=== PATIENT | female | born 1950 | race Caucasian/White ===

== ENCOUNTER 2017-05-17 07:12 | Inpatient (IN) | payer MEDICARE ==
[~2017-05-17] VITALS: Ht 154.9 cm; Wt 160.6 kg
[2017-05-17] MEDS ORDERED: APIX5TAB PO (09:05)
[2017-05-17] MEDS ORDERED: SIMV40TA PO (09:05)
[2017-05-17] MEDS ORDERED: ATEN50TA PO (09:05)
[2017-05-17] MEDS ORDERED: NORC5TAB PO (09:05)
[2017-05-17] MEDS ORDERED: LISI10TA3 PO (09:05)
[2017-05-17] MEDS ORDERED: LEVO200T4 PO (09:05)
[2017-05-17] MEDS ORDERED: GABA300C5 PO (09:05)
[2017-05-17] MEDS ORDERED: CLOTCRE TOPICAL (09:05)
[2017-05-17] MEDS ORDERED: FLUO20CA12 PO (09:05)
[2017-05-17] MEDS ORDERED: ceFAZolin 2 GM PREMIX 50 ML IV SCH (09:30)
[2017-05-17] MEDS ORDERED: SODIUM CHLORID 0.9% 500 ML IV PRN (09:30)
[2017-05-17] MEDS ORDERED: ONDANSETRON HCL 4 MG/2 ML VIAL IV PUSH SCH (09:30)
[2017-05-17] MEDS ORDERED: metroNIDAZOLE 500 MG INJ 100 ML IV SCH (09:30)
[2017-05-17] MEDS ORDERED: METOPROLOL TARTRATE 25 MG TAB PO PRN (09:30)
[2017-05-17] MEDS ORDERED: LACTATED RINGER'S 1000 ML IV PRN (09:30)
[2017-05-17] MEDS ORDERED: SCOPOLAMINE 1.5 MG PATCH T-DERMAL SCH (09:30)
[2017-05-17] MEDS ORDERED: CHLORHEXIDINE GLUCONATE 2 % 1 PACK (2 CLOTHS) TOPICAL PRN (09:30)
[2017-05-17] MEDS ORDERED: ACETAMINOPHEN 1000 MG/100 ML 100 ML IV SCH (09:30)
[2017-05-17] MEDS ORDERED: APREPITANT 40 MG CAP PO SCH (09:30)
[2017-05-17] MEDS ORDERED: INSULIN HUMAN REGULAR 1,000 UNITS/10 ML VIAL SQ PRN (09:30)
[2017-05-17] MEDS ORDERED: POVIDONE IODINE 5% (ANTISEPSIS KIT) 4 APPLICATIONS EACH NARE PRN (09:30)
[2017-05-17] MEDS ORDERED: BUPIVACAINE/EPINEPHRINE 0.5% 50 ML VIAL ONE ×2 (10:33→10:34)
[2017-05-17] MEDS ORDERED: ONDANSETRON HCL 4 MG/2 ML VIAL IV PUSH ONE (12:00)
[2017-05-17] MEDS ORDERED: PHENYLEPH/NS 1000 MCG/10 ML SYR IV ONE (12:00)
[2017-05-17] MEDS ORDERED: GLYCOPYRROLATE 1 MG/5 ML SYRINGE IV PUSH ONE (12:00)
[2017-05-17] MEDS ORDERED: PROPOFOL 200 MG/20 ML AMP IV ONE (12:00)
[2017-05-17] MEDS ORDERED: NEOSTIGMINE 3 MG/3 ML SYR IV ONE (12:00)
[2017-05-17] MEDS ORDERED: STERILE WATER FOR INJECTION 20 ML VIAL IV ONE (12:00)
[2017-05-17] MEDS ORDERED: MIDAZOLAM HCL 2 MG/2 ML VIAL IV ONE (12:00)
[2017-05-17] MEDS ORDERED: LACTATED RINGER'S 1000 ML INJ 1,000 ML IV ONE (12:00)
[2017-05-17] MEDS ORDERED: LIDOCAINE HCL 1% PF 5 ML AMPULE OTHER ONE (12:00)
[2017-05-17] MEDS ORDERED: METHYLENE BLUE 10 MG/ML VIAL IV ONE (12:00)
[2017-05-17] MEDS ORDERED: ePHEDrine/NS 25 MG/5 ML SYR IV ONE (12:00)
[2017-05-17] MEDS ORDERED: VECURONIUM BROMIDE 20 MG VIAL IV ONE (12:00)
[2017-05-17] MEDS ORDERED: ROCURONIUM INJ 50 MG/5 ML SYRINGE IV PUSH ONE (12:00)
[2017-05-17] MEDS ORDERED: SUGAMMADEX SODIUM 200 MG/2 ML VIAL IV PUSH ONE ×2 (14:09)
[2017-05-17] MEDS: METOCLOPRAMIDE HCL 10 MG/2 ML VIAL IV PUSH SCH ×2 (15:30→21:22)
[2017-05-17] MEDS ORDERED: ACETAMINOPHEN 325MG/HYDROcodone 7.5MG/15ML UDC PO PRN (15:30)
[2017-05-17] MEDS ORDERED: diphenhydrAMINE HCL ELIXIR 12.5 MG/5 ML CUP PO PRN (15:30)
[2017-05-17] MEDS ORDERED: Post-op Orders (for Pharmacy) MISC OTHER ONE (15:30)
[2017-05-17] MEDS ORDERED: ENALAPRILAT 1.25 MG/ML VIAL IV PUSH PRN (15:30)
[2017-05-17] MEDS ORDERED: diphenhydrAMINE HCL 50 MG/ML VIAL IV PUSH PRN (15:30)
[2017-05-17] MEDS: D5-1/2 NS + KCL 20 MEQ INJ 1,000 ML IV SCH ×2 (15:30)
[2017-05-17] MEDS ORDERED: SODIUM CHLORIDE 0.9% FLUSH 10 ML FLUSH IV FLUSH PRN (15:30)
[2017-05-17] MEDS ORDERED: HYDROmorphone HCL PF 1 MG/ML VIAL IV PUSH PRN (15:30)
[2017-05-17] MEDS ORDERED: *ONDANSETRON 4 MG VIAL PERIprocedural Use ONLY ONE (15:56)
[2017-05-17] MEDS ORDERED: *RESP: ALBUTEROL 2.5 MG/3 ML NEB (PRN) PERIprocedural Use ONLY NEB ONE (16:03)
[2017-05-17] MEDS ORDERED: *PROMETHAZINE 25 MG/ML VIAL PERIprocedural use ONLY ONE (16:05)
[2017-05-17] MEDS ORDERED: *morphine SULFATE 8 MG/ML PERIprocedure ONLY ONE (16:17)
[2017-05-17] MEDS ORDERED: *HYDROmorphone PF 1 MG VIAL PERIprocedural Use ONLY ONE (16:29)
[2017-05-17] MEDS ORDERED: METOCLOPRAMIDE HCL 10 MG/2 ML VIAL IV PUSH PRN (16:30)
[2017-05-17] MEDS: RESP: ALBUTEROL 2.5 MG/3 ML NEB (SCH) INH ×2 (16:51→20:50)
[2017-05-17 17:56] VITALS: BP 136/71; PULSE 71; RESP 20; TEMP 98.5; O2SAT 96
[2017-05-17 20:00] VITALS: BP 150/93; PULSE 78; RESP 20; TEMP 96.7; O2SAT 97
[2017-05-17] MEDS: SODIUM CHLORIDE 0.9% FLUSH 10 ML FLUSH IV FLUSH SCH (21:00)
[2017-05-17] MEDS: metroNIDAZOLE 500 MG INJ 100 ML IV SCH (21:23)
[2017-05-17] MEDS: ACETAMINOPHEN 325MG/HYDROcodone 7.5MG/15ML UDC PO PRN (22:15)
[2017-05-18] VITALS (10 sets, daily range): BP systolic 108–138; BP diastolic 61–77; PULSE 75–110; RESP 16–20; TEMP 96–98.2; O2SAT 91–98
[2017-05-18] MEDS: RESP: ALBUTEROL 2.5 MG/3 ML NEB (SCH) INH ×6 (00:08→19:34)
[2017-05-18] MEDS: METOCLOPRAMIDE HCL 10 MG/2 ML VIAL IV PUSH SCH ×2 (04:28→09:27)
[2017-05-18] MEDS: metroNIDAZOLE 500 MG INJ 100 ML IV SCH ×2 (04:32→14:26)
[2017-05-18] MEDS: D5-1/2 NS + KCL 20 MEQ INJ 1,000 ML IV SCH ×5 (04:32→19:45)
[2017-05-18] MEDS: ONDANSETRON HCL 4 MG/2 ML VIAL IV PUSH PRN ×2 (05:58→12:04)
[2017-05-18 07:33] LABS: AUTOMATED NEUTROPHIL # 11.5 TH/MM3 (1.8-7.7); BASOPHIL % 0.1 % (0.0-2.0); EOSINOPHIL % 0.1 % (0.0-4.0); HEMATOCRIT 41.5 % (35.0-46.0); HEMO FLAGS DIFF FINAL; LYMPHOCYTE # 1.4 TH/MM3 (1.0-4.8); MEAN CELL VOLUME 92.9 FL (80.0-100.0); MEAN CORPUSCULAR HEMOGLOBIN 31.4 PG (27.0-34.0); MEAN CORPUSCULAR HGB CONC 33.8 % (32.0-36.0); MONO % 10.1 % (0.0-8.0); NEUT % 79.7 % (16.0-70.0); PLATELET COUNT 196 TH/MM3 (150-450); RED BLOOD COUNT 4.47 MIL/MM3 (4.00-5.30); RED CELL DISTRIBUTION WIDTH 14.8 % (11.6-17.2); WHITE BLOOD COUNT 14.5 TH/MM3 (4.0-11.0)
[2017-05-18] MEDS: ACETAMINOPHEN 325MG/HYDROcodone 7.5MG/15ML UDC PO PRN ×2 (07:42→16:55)
[2017-05-18 07:59] LABS: BICARBONATE 23.8 MEQ/L (21.0-32.0); MAGNESIUM 1.9 MG/DL (1.5-2.5)
[2017-05-18 08:00] LABS: POTASSIUM 4.2 MEQ/L (3.5-5.1)
[2017-05-18] MEDS: LEVOTHYROXINE SODIUM 200 MCG TAB PO SCH (08:27)
[2017-05-18] MEDS: SODIUM CHLORIDE 0.9% FLUSH 10 ML FLUSH IV FLUSH SCH ×2 (09:00→21:00)
[2017-05-18] MEDS: PANTOPRAZOLE SOD 40 MG DELAYED RELEASE TAB PO SCH (09:26)
[2017-05-18] MEDS: ATENOLOL 50 MG TAB PO SCH (09:26)
[2017-05-18] MEDS: FLUoxetine HCL 20 MG CAP PO SCH (09:26)
[2017-05-18] MEDS: LISINOPRIL 10 MG TAB PO SCH (09:27)
[2017-05-18] MEDS ORDERED: GLUCAGON 1 MG/ML VIAL OTHER PRN (11:45)
[2017-05-18] MEDS ORDERED: DEXTROSE 50% IN WATER 50 ML VIAL(D50) IV PUSH PRN (11:45)
--- NOTE | 2017-05-18 12:03 | HHI.PR ---
Subjective Subjective Notes Sitting up in bed, tolerating fluids. Complains of some nausea relieved by ondansetron Objective Vitals/I&O Vital Signs Date Time Temp Pulse Resp B/P (MAP) Pulse Ox O2 Delivery O2 Flow Rate FiO2 05/18/17 09:13 94 21 05/18/17 08:00 98.2 110 16 126/65 (85) 05/17/17 17:00 Nasal Cannula 3 Labs Laboratory Tests Test 05/18/17 07:10 White Blood Count 14.5 Red Blood Count 4.47 Hemoglobin 14.0 Hematocrit 41.5 Mean Corpuscular Volume 92.9 Mean Corpuscular Hemoglobin 31.4 Mean Corpuscular Hemoglobin Concent 33.8 Red Cell Distribution Width 14.8 Platelet Count 196 Mean Platelet Volume 9.7 Neutrophils (%) (Auto) 79.7 Lymphocytes (%) (Auto) 10.0 Monocytes (%) (Auto) 10.1 Eosinophils (%) (Auto) 0.1 Basophils (%) (Auto) 0.1 Neutrophils # (Auto) 11.5 Lymphocytes # (Auto) 1.4 Monocytes # (Auto) 1.5 Eosinophils # (Auto) 0.0 Basophils # (Auto) 0.0 CBC Comment DIFF FINAL Differential Comment Blood Urea Nitrogen 14 Creatinine 0.93 Random Glucose 123 Calcium Level 8.9 Magnesium Level 1.9 Sodium Level 139 Potassium Level 4.2 Chloride Level 107 Carbon Dioxide Level 23.8 Anion Gap 8 Estimat Glomerular Filtration Rate 60 Cardiovascular: Regular Lungs: Clear Abdomen: Post-op tenderness Extremities: Perfused Wound Wound : Wound Location: Abdomen Appearance: Clean & Dry A/P Assessment and Plan 66yo F POD# 1 Laparoscopic RNY -Continue with frequent ambulation -Continue to increase fluids as tolerated -OK for abdominal binder The exam, history, and the medical decision-making described in the above note were completed with the assistance of the mid-level provider. I reviewed and agree with the findings presented. I attest that I had a [id number] encounter with the patient on the same day, and personally performed and documented my assessment and findings in the medical record. Discharge Planning D/C home tomorrow Baudilio Son [facility] May 18, 2017 12:03 Miguel Johnson MD Jun 08, 2017 12:37
[2017-05-18] MEDS ORDERED: ENOXAPARIN SODIUM 40 MG/0.4 ML SYRINGE SQ SCH (15:00)
[2017-05-18] MEDS ORDERED: METOCLOPRAMIDE HCL 10 MG/2 ML VIAL IV PUSH PRN (15:30)
[2017-05-18] MEDS ORDERED: GABAPENTIN 300 MG CAP PO SCH (21:00)
[2017-05-19] MEDS: D5-1/2 NS + KCL 20 MEQ INJ 1,000 ML IV SCH ×4 (00:19→09:14)
[2017-05-19 00:42] VITALS: BP 127/59; PULSE 80; RESP 20; TEMP 97.9; O2SAT 96
[2017-05-19] MEDS: RESP: ALBUTEROL 2.5 MG/3 ML NEB (SCH) INH ×4 (02:00→11:54)
[2017-05-19] MEDS: ACETAMINOPHEN 325MG/HYDROcodone 7.5MG/15ML UDC PO PRN ×3 (03:00→15:24)
[2017-05-19 04:39] VITALS: BP 114/61; PULSE 89; RESP 18; TEMP 98.3; O2SAT 94
[2017-05-19 06:10] VITALS: O2SAT 95
[2017-05-19 08:54] VITALS: O2SAT 93
[2017-05-19] MEDS: SODIUM CHLORIDE 0.9% FLUSH 10 ML FLUSH IV FLUSH SCH (09:00)
[2017-05-19] MEDS ORDERED: APIXABAN 5 MG TABLET PO SCH (09:00)
[2017-05-19] MEDS: PANTOPRAZOLE SOD 40 MG DELAYED RELEASE TAB PO SCH (09:03)
[2017-05-19] MEDS: LISINOPRIL 10 MG TAB PO SCH (09:03)
[2017-05-19] MEDS: ATENOLOL 50 MG TAB PO SCH (09:03)
[2017-05-19] MEDS: FLUoxetine HCL 20 MG CAP PO SCH (09:03)
[2017-05-19] MEDS: LEVOTHYROXINE SODIUM 200 MCG TAB PO SCH (09:04)
[2017-05-19] MEDS ORDERED: INFLUENZA VIRUS VACCINE (QUADRIVALENT) 0.5 ML SYR IM ONE (10:00)
[2017-05-19 12:00] VITALS: BP 103/56; PULSE 81; RESP 17; TEMP 95.8; O2SAT 96
--- NOTE | 2017-05-19 14:06 | HHI.PR ---
Subjective Subjective Notes Sitting up on bed. Nausea much improved. Tolerating fluids, passing flatus. Pain well controlled Objective Vitals/I&O Vital Signs Date Time Temp Pulse Resp B/P (MAP) Pulse Ox O2 Delivery O2 Flow Rate FiO2 05/19/17 12:00 95.8 81 17 103/56 (72) 96 05/18/17 09:13 21 05/17/17 17:00 Nasal Cannula 3 Labs Laboratory Tests Test 05/18/17 07:10 White Blood Count 14.5 TH/MM3 Red Blood Count 4.47 MIL/MM3 Hemoglobin 14.0 GM/DL Hematocrit 41.5 % Mean Corpuscular Volume 92.9 FL Mean Corpuscular Hemoglobin 31.4 PG Mean Corpuscular Hemoglobin Concent 33.8 % Red Cell Distribution Width 14.8 % Platelet Count 196 TH/MM3 Mean Platelet Volume 9.7 FL Neutrophils (%) (Auto) 79.7 % Lymphocytes (%) (Auto) 10.0 % Monocytes (%) (Auto) 10.1 % Eosinophils (%) (Auto) 0.1 % Basophils (%) (Auto) 0.1 % Neutrophils # (Auto) 11.5 TH/MM3 Lymphocytes # (Auto) 1.4 TH/MM3 Monocytes # (Auto) 1.5 TH/MM3 Eosinophils # (Auto) 0.0 TH/MM3 Basophils # (Auto) 0.0 TH/MM3 CBC Comment DIFF FINAL Differential Comment Blood Urea Nitrogen 14 MG/DL Creatinine 0.93 MG/DL Random Glucose 123 MG/DL Calcium Level 8.9 MG/DL Magnesium Level 1.9 MG/DL Sodium Level 139 MEQ/L Potassium Level 4.2 MEQ/L Chloride Level 107 MEQ/L Carbon Dioxide Level 23.8 MEQ/L Anion Gap 8 MEQ/L Estimat Glomerular Filtration Rate 60 ML/MIN Cardiovascular: Regular Lungs: Clear Abdomen: Post-op tenderness Extremities: Perfused Wound Wound : Wound Location: Abdomen Appearance: Clean & Dry A/P Assessment and Plan 66yo F POD# 2 Laparoscopic RNY -Continue with frequent ambulation -Continue to increase fluids as tolerated The exam, history, and the medical decision-making described in the above note were completed with the assistance of the mid-level provider. I reviewed and agree with the findings presented. I attest that I had a [id number] encounter with the patient on the same day, and personally performed and documented my assessment and findings in the medical record. Discharge Planning D/C home today Baudilio Son May 19, 2017 14:06 Miguel Johnson MD Jun 08, 2017 12:39
--- NOTE | 2017-05-19 23:16 | MP ---
cc: ALEK JOHNSON M.D. DATE OF OPERATION 05/17/2017 DATE OF 1950 PREOPERATIVE DIAGNOSIS Morbid obesity with a BMI of 67, complicated by essential hypertension, hypercholesterolemia. POSTOPERATIVE DIAGNOSIS Morbid obesity with a BMI of 67, complicated by essential hypertension, hypercholesterolemia. PROCEDURE Laparoscopic vertical sleeve gastrectomy over a ViSiGi [place] VCG bougie. SURGEON Alek Johnson MD ANESTHESIA General endotracheal anesthesia. ESTIMATED BLOOD LOSS Scant. FINDINGS Fatty liver. SPECIMENS None. COMPLICATIONS None. OPERATION The patient was brought to the operating room and placed on the operating table in supine position, bilateral sequential inflation device placed on lower extremities. General anesthesia was instituted. Antibiotics was initiated. The abdomen was prepped and draped sterilely. A point 15 cm distal to the xiphoid in the midline was anesthetized with 0.25% Marcaine with epinephrine. A skin incision was made, 5-mm OptiView port placed under direct vision and pneumoperitoneum created. Under direct vision, three 5-mm left upper quadrant, a 15-mm right upper quadrant, 5-mm right upper quadrant ports placed. Prior to placement of all ports the skin and peritoneum were anesthetized with 0.25% Marcaine with epinephrine. The patient was placed in reverse Trendelenburg position left side up, the Erica-Flex retractor was placed. The left lobe of the liver was retracted. The vasculature along the greater curvature of the stomach was using harmonic scalpel starting a distance 5-cm proximal to the pylorus and carried towards the angle of His. The angle of His was taken down bluntly. Posterior ligamentous attachments were sharply . A 36-[place] ViSiGi bougie was placed at the start of the case, was placed on suction. Division of the stomach started 5 cm proximal to the pylorus and carried towards the angle of His to completely excise approximately 80% of the stomach. This was performed using an Staves Flex stapler at the pylorus. The first firing was with a black load, followed by a green load and four gold loads. All staple loads were reinforced with SeamGuard. A distance of 2 cm was left from the angle incisura and the staple line and a distance of 1 cm left from the GE junction and the staple line. The pylorus was then occluded, methylene blue tinged saline was instilled. There was no evidence of extravasation. The gastrocolic ligament was then sutured to the posterior leaflet of the SeamGuard using a 2-0 Vicryl suture in a running manner. Bleeding points were controlled with Evicel. The excised stomach was removed from the peritoneal cavity through the 15-mm port site in an Endopouch. The fascia at the 15-mm port site was approximated with 0 Vicryl suture. The CO2 was then released, all ports were removed, all skin incisions closed with 4-0 Monocryl. The abdominal wall was cleaned. A sterile dressing was placed. The patient was awakened and taken to the recovery room. MD AMADO Mckeon/JING /2:06 PM /10:51 PM
== END 2017-05-19 16:18 | disposition home or self-care (01) | DRG 621 ==
LOC: HSDI 07:12 → N07B 17:14
PROVIDERS: ADMIT Surgery; ATTEND Surgery
PROC: 0DB64Z3 Excision of Stomach, Percutaneous Endoscopic Approach, Vertical (ICD-10-PCS; principal; 2017-05-17 13:23)
DX: E66.01 Morbid (severe) obesity due to excess calories (principal); E11.22 Type 2 diabetes mellitus with diabetic chronic kidney disease; E11.42 Type 2 diabetes mellitus with diabetic polyneuropathy; K76.0 Fatty (change of) liver, not elsewhere classified; I48.91 Unspecified atrial fibrillation; E78.00 Pure hypercholesterolemia, unspecified; G47.30 Sleep apnea, unspecified; Z23 Encounter for immunization; Z68.44 Body mass index [BMI] 60.0-69.9, adult; N18.1 Chronic kidney disease, stage 1; I12.9 Hypertensive chronic kidney disease with stage 1 through stage 4 chronic kidney disease, or unspecified chronic kidney disease; F32.9 Major depressive disorder, single episode, unspecified; M10.9 Gout, unspecified; E03.9 Hypothyroidism, unspecified; M19.90 Unspecified osteoarthritis, unspecified site
CPT/HCPCS: 80048; 82948; 83735; 85025; 90686; 94150; 94640; 94664; J0131; J0690; J1170; J1650; J2250; J2270; J2370; J2405; J2550; J2710; J2765; J3010; J3480; J7120; J7613; J8501; Q2038